=== PATIENT | male | born 2005 | race Caucasian/White ===

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

== ENCOUNTER → 2025-01-08 07:23 | Outpatient (CLI) | payer OTHER, SELFPAY ==
--- NOTE | 2025-01-08 07:24 | DI.US.S_ITS ---
PROCEDURE: US RENAL DOPPLER INDICATIONS: labile HTN TECHNIQUE: Real time scanning was performed of both kidneys, followed by Color and pulsed Doppler interrogation of the renal vessels. Twenty-seven images. COMPARISON: None. FINDINGS: Aortic peak systolic velocity: 135.5 cm/s. Right side: [place]-scale imaging: Kidney is 12.0 cm long. No hydronephrosis. No nephrolithiasis. Renal cortex is normal in echogenicity. No suspicious solid renal masses. Proximal renal artery peak systolic velocity: 63.2 cm/s. Mid renal artery peak systolic velocity: 144.1 cm/s. Distal renal artery peak systolic velocity: 88.5 cm/s. Renal vein: Patent, without thrombus. Peak renal/aortic ratio (RAR): 1.1 Left side: [place]-scale imaging: Kidney is 12.1 cm long. No hydronephrosis. No nephrolithiasis. Renal cortex is normal in echogenicity. No suspicious solid renal masses. Proximal renal artery peak systolic velocity: 74 cm/s. Mid-renal artery peak systolic velocity: 55 cm/s. Distal renal artery peak systolic velocity: 106 cm/s. Renal vein: Patent, without thrombus. Peak renal/aortic ratio (RAR): 0.8 IMPRESSION: No ultrasound evidence of significantly elevated systolic velocities or elevated renal aortic ratio. Dictated by: Andres Hearn M.D. on 01/08/2025 at 12:28 Approved by: Andres Hearn M.D. on 01/08/2025 at 12:35
--- NOTE | 2025-01-08 08:57 | DI.ECHO.S_ITS ---
[facility] : : [address] : : [place] : : [id number] : : Phone: [phone] Echocardiogram Report + + :Name: CRESCENCIO FARRELL Study Date: 01/08/2025 Height: 68 in : :Hospital ReadingLocation: Weight: 178 lb : : Gender: Male BSA: 1.9 m2 : :: 2005 Age: 19 yrs BP: 149/96 mmHg: :Reason For Study: Hypertension : :Ordering Physician: CARMINE, : :ISAAC Bangura Performed By: Seth Flores : :Referring: ISAAC LOU : + + Interpretation Summary Normal left ventricle size with ejection fraction 50-55%. Normal right ventricle and both atria. No valvular abnormality. Procedure: A two-dimensional transthoracic echocardiogram with color flow and Doppler was performed. The study quality was technically adequate. There is no prior echocardiogram noted for this patient. The patient was in normal sinus rhythm during the exam. Left Ventricle: The left ventricle is normal in size and wall thickness. Left ventricular systolic function is low normal. The ejection fraction is estimated to be 50-55%. There are no focal wall motion abnormalities. Diastolic parameters suggest probable normal left ventricular diastolic function and normal filling pressures. Right Ventricle: The right ventricle is normal in size and function. Atria: The left atrial size is normal. Right atrial size is normal. A prominent eustachian valve is noted. There is no Doppler evidence for an interatrial shunt. Mitral Valve: The mitral valve leaflets appear to open well. There is no mitral valve stenosis. There is trace mitral regurgitation. Aortic Valve: The aortic valve is trileaflet. The aortic valve opens well. There is no aortic valve stenosis. No aortic regurgitation is present. Tricuspid Valve: The tricuspid valve leaflets are thin and pliable. There is a trace or physiologic amount of tricuspid regurgitation. Pulmonary artery pressures cannot be estimated because of the lack of a measurable TR jet velocity but the IVC suggests a CVP of around 3 mmHg. Pulmonic Valve: The pulmonic valve leaflets are thin and pliable; valve motion is normal. There is a trace or physiologic amount of pulmonic regurgitation. Great Vessels: The aortic root is normal size. The ascending aorta is normal in size. The aortic arch is normal in size. The pulmonary artery is normal size. The IVC is of normal diameter and collapses greater than 50% with a sniff. This suggests a low right atrial pressure of 3 mm Hg. Pericardium/ Pleura There is no pericardial effusion. MMode/2D Measurements & Calculations LVIDd: 4.9 cm LVOT diam: 2.1 cm LVIDs: 3.4 cm Ao root diam: 3.0 cm FS: 30.7 % asc Aorta Diam: 2.6 cm EPSS: 0.61 cm Ao Arch Diam (Prox Trans): 2.0 cm IVSd: 0.98 cm LVPWd: 0.90 cm LV boland. diameter/BSA (cm/m^2): 2.5 LV sys. diameter/BSA (cm/m^2): 1.7 LA A2 area: 21.5 cm2 RA long axis: 4.6 cm LA A4 area: 18.0 cm2 RA area: 14.6 cm2 LA length (vol): 5.6 cm RA vol: 39.6 ml LA vol: 58.6 ml RA : 20.3 ml/m2 LA vol index: 30.1 ml/m2 IVC diam: 1.9 cm RVD1 (basal): 3.7 cm RVD2 (mid): 3.5 cm TAPSE: 1.7 cm Doppler Measurements & Calculations Ao V2 max: 133.3 cm/sec LVOT Max Blair: 87.8 cm/sec Ao V2 mean: 92.4 cm/sec LV V1 max P.1 mmHg Ao max P.1 mmHg LV V1 VTI: 17.3 cm Ao mean P.0 mmHg TIN(I,D): 2.1 cm2 Ao V2 VTI: 28.0 cm TIN(V,D): 2.2 cm2 sev ratio: 0.62 TIN indexed to BSA (cm^2/m^2): 1.1 MV E max blair: 69.0 cm/sec PA V2 max: 94.1 cm/sec MV A max blair: 36.5 cm/sec PA V2 mean: 70.5 cm/sec MV E/A: 1.9 PA mean P.1 mmHg Med Peak E' Blair: 13.0 cm/sec PA pr(Accel): 24.2 mmHg E/E' med: 5.3 Lat Peak E' Blair: 16.2 cm/sec E/E' lat: 4.3 E/e' average: 4.8 MV dec time: 0.19 sec SV(LVOT): 57.6 ml Qp/Qs (V,Ao): 1.0/4.8 Qp/Qs (V,LVOT): 1.0/1.5 Electronically signed by: Mela Velasco on Reading Physician:01/08/2025 09:50 AM
== END ==
LOC: US 07:23
PROVIDERS: Family Provider Pediatrics; PCP Family Medicine; Referring Provider Family Medicine; Visit Provider Family Medicine
DX: I34.0 Nonrheumatic mitral (valve) insufficiency (principal); I10 Essential (primary) hypertension
CPT/HCPCS: 93307; 93975